=== PATIENT | male | born 1985 | race Caucasian/White ===

== ENCOUNTER 2018-08-06 20:38 | Emergency (ER) | payer MEDICARE ==
[2018-08-06 20:49] VITALS: BP 123/78; PULSE 96; RESP 18; TEMP 98.4
--- NOTE | 2018-08-06 21:24 | ED ---
Abdominal Pain HPI - General Chief Complaint: Abdominal Pain Stated Complaint: Work out injury Time Seen by Provider: 08/06/18 21:02 Source: patient Mode of arrival: ambulatory Limitations: no limitations - History of Present Illness Initial Comments: This patient is a 33-year-old man who presents with concern that he may have developed a hernia. The patient states that he was working out tonight and during one exercises noted that he had a pop in the epigastric area of his abdominal wall and noted that there was some bulging there. He states that when he relaxes and breast area the bulge disappeared. He states that the pain is resolved. He is not having any nausea or vomiting. He does indicate that this had developed at the surgical site he had 4 cholecystectomy. MD Complaint: abdominal pain Onset/Timin -: hour(s) Location: epigastric Radiation: none Migration to: no migration Quality: sharp Consistency: now resolved Improves With: nothing Worsens With: nothing Associated Symptoms: denies other symptoms - Related Data Previous Rx's Medication Instructions Recorded Ibuprofen [Motrin] 600 mg PO Q6HR PRN #40 day 02/12/18 Allergies Allergy/AdvReac Type Severity Reaction Status Date / Time narcotics Allergy Unknown Uncoded 08/06/18 20:49 Review of Systems ROS Statement: Those systems with pertinent positive or pertinent negative responses have been documented in the HPI. ROS Other: All systems not noted in ROS Statement are negative. Constitutional: Denies: fever, chills Respiratory: Denies: cough, dyspnea Cardiovascular: Denies: chest pain, palpitations Gastrointestinal: Reports: as per HPI, abdominal pain. Denies: nausea, vomiting, diarrhea, constipation Genitourinary: Denies: dysuria, hematuria, testicular pain, testicular mass Musculoskeletal: Denies: back pain Past Medical History Additional Past Medical History / Comment(s): Several orthopedic injuries. History of Any Multi-Drug Resistant Organisms: None Reported Past Surgical History: Orthopedic Surgery Past Psychological History: No Psychological Hx Reported Smoking Status: Current every day smoker Past Alcohol Use History: None Reported Past Drug Use History: None Reported General Exam Limitations: no limitations General appearance: alert, in no apparent distress Head exam: Present: atraumatic, normocephalic Respiratory exam: Present: normal lung sounds bilaterally. Absent: respiratory distress, wheezes, rales, rhonchi, stridor Cardiovascular Exam: Present: regular rate, normal rhythm, normal heart sounds. Absent: systolic murmur, diastolic murmur, rubs, gallop GI/Abdominal exam: Present: soft, hernia (Patient has a small incisional hernia located in the epigastric area. He is currently reduced and is nontender.). Absent: distended, tenderness, guarding, rebound, rigid, mass, pulsatile mass Extremities exam: Present: normal inspection, normal capillary refill. Absent: pedal edema, calf tenderness Back exam: Present: normal inspection. Absent: CVA tenderness (R), CVA tenderness (L) Neurological exam: Present: alert Skin exam: Present: warm, dry, intact, normal color. Absent: rash Course Vital Signs 08/06/18 20:46 Temperature 98.4 F Pulse Rate 96 Respiratory 18 Rate Blood Pressure 123/78 O2 Sat by Pulse 98 Oximetry Disposition Clinical Impression: Hernia Disposition: HOME SELF-CARE Condition: Good Instructions (If sedation given, give patient instructions): Incisional Hernia (DC) Is patient prescribed a controlled substance at d/c from ED?: No Referrals: None,Stated [Primary Care Provider] - 1-2 days
== END 2018-08-06 21:35 | disposition home or self-care (01) ==
LOC: EC 20:38
DX: K43.2 Incisional hernia without obstruction or gangrene (principal); F17.200 Nicotine dependence, unspecified, uncomplicated; Z88.5 Allergy status to narcotic agent; Z90.49 Acquired absence of other specified parts of digestive tract
CPT/HCPCS: 99283